=== PATIENT | female | born 1935 | race Two or more races ===

== ENCOUNTER 2023-06-09 18:08 | Inpatient (IN) | payer OTHER ==
[~2023-06-09] VITALS: Ht 162.6 cm; Wt 79.4 kg
[2023-06-09 18:08] VITALS: BP 147/67; PULSE 91; RESP 20; TEMP 100.3; O2SAT 95
[2023-06-09 20:14] LABS: BASOPHILS % (AUTO) 0.5 % (0.0-2.0); EOSINOPHILS # (AUTO) 0.1 K/uL (0-0.4); EOSINOPHILS % (AUTO) 0.9 % (0.0-4.0); HEMATOCRIT 38.6 % (36-48); HEMOGLOBIN 13.2 g/dL (12.0-16.0); LYMPHOCYTES % (AUTO) 14.7 % (20.5-51.1); MEAN CORPUSCULAR HEMOGLOBIN 30 pg (27-31); MEAN CORPUSCULAR HGB CONC 34 g/dL (33-37); MEAN CORPUSCULAR VOLUME 88.6 fL (80-94); MONOCYTES # (AUTO) 0.5 K/uL (0.8-1.0); NEUTROPHILS % (AUTO) 75.9 % (42.2-75.2); PLATELET COUNT (AUTO) 174 K/uL (140-450); RED BLOOD CELL COUNT(AUTO) 4.36 MIL/uL (4.20-5.40); RED CELL DISTRIBUTION WIDTH 13.5 % (11.6-13.7); WHITE BLOOD COUNT (AUTO) 6.5 K/uL (4.8-10.8)
[2023-06-09 20:32] LABS: ALANINE AMINOTRANSFERASE 20 U/L (12-78); ALBUMIN 2.8 g/dL (3.4-5.0); ALKALINE PHOSPHATASE 96 U/L (50-136); ANION GAP 12.6 (8-16); ASPARTATE AMINOTRANSFERASE 21 U/L (15-37); CALCIUM 8.4 mg/dL (8.5-10.1); CARBON DIOXIDE 28.1 mmol/L (21-32); CHLORIDE 101 mmol/L (98-107); CREATININE 1.1 mg/dL (0.6-1.3); GLUCOSE 131 mg/dL (74-106); POTASSIUM 3.7 mmol/L (3.5-5.1); SODIUM SERUM 138 mmol/L (136-145); TOTAL BILIRUBIN 0.2 mg/dL (0.0-1.0); TOTAL PROTEIN, SERUM 7.3 g/dL (6.4-8.2); UREA NITROGEN, BLOOD 20 mg/dL (7-18)
[2023-06-09 22:54] LABS: FLU A ANTIGEN negative (NEGATIVE); FLU B ANTIGEN negative (NEGATIVE)
[2023-06-10 01:12] LABS: APPEARANCE,URINE CLEAR (CLEAR); BILIRUBIN,URINE NEGATIVE (NEGATIVE); BLOOD, URINE NEGATIVE (NEGATIVE); COLOR,URINE YELLOW (YELLOW); LEUKOCYTE ESTERASE ,URINE NEGATIVE (NEGATIVE); NITRITE, URINE NEGATIVE (NEGATIVE); PROTEIN,URINE TRACE (NEGATIVE); UGLUCOSE NEGATIVE (NEGATIVE); UROBILINOGEN,URINE 0.2 EU/dL (0.2 - 1)
[2023-06-10 01:21] LABS: RBC,URINE NONE SEEN /HPF (0-5); WBC,URINE NONE SEEN /HPF (0-5)
[2023-06-10 01:22] LABS: BACTERIA,URINE FEW /HPF (None Seen); SQUAMOUS EPITHELIAL CELL,UR 0-3 (FEW) /LPF (0-3 (FEW))
[2023-06-10] MEDS: ACETAMINOPHEN EXTRA STRENGTH 500 MG TAB PO ONE (02:26)
[2023-06-10] MEDS: KETOROLAC 30 MG/ML VIAL IVP ONE (02:28)
[2023-06-10] MEDS: MECLIZINE 25 MG TAB PO ONE (05:12)
[2023-06-10] MEDS: NACL 0.9% 1,000 ML IV ONE (07:05)
[2023-06-10] MEDS ORDERED: PANT40EC PO (08:53)
[2023-06-10] MEDS ORDERED: DICL100G32 TP (08:53)
[2023-06-10] MEDS ORDERED: CHOL100013 PO (08:53)
[2023-06-10] MEDS ORDERED: METO25TA PO (08:53)
[2023-06-10] MEDS ORDERED: EXE9.5T TP (08:53)
[2023-06-10] MEDS ORDERED: [UNRECOGNIZED DRUG - CODE] PO (08:53)
[2023-06-10] MEDS ORDERED: VITB12 PO (08:53)
[2023-06-10] MEDS ORDERED: OLAN5TAB65 PO (08:53)
[2023-06-10] MEDS ORDERED: PIMA34CA PO (08:53)
[2023-06-10] MEDS ORDERED: FLUO40CA PO (08:53)
[2023-06-10] MEDS ORDERED: OLAN2.5T1 PO (08:53)
[2023-06-10] MEDS ORDERED: SITA25TA3 PO (08:53)
[2023-06-10] MEDS ORDERED: LEVO0.173 PO (08:53)
[2023-06-10] MEDS: NACL 0.9% 1,000 ML IV SCH (14:21)
[2023-06-10 19:30] VITALS: BP 162/66; PULSE 75; RESP 18; TEMP 97.7; O2SAT 97
[2023-06-10] MEDS: hydrALAZINE 25 MG TAB PO PRN (20:29)
[2023-06-10] MEDS ORDERED: ZOLPIDEM 5 MG TAB PO PRN (22:25)
[2023-06-10] MEDS ORDERED: ONDANSETRON 4 MG/2 ML VIAL IVP PRN (22:25)
[2023-06-10] MEDS ORDERED: LORazepam 1 MG TAB PO PRN (22:25)
[2023-06-11 06:24] LABS: BASOPHILS # (AUTO) 0.1 K/uL (0.00-0.22); BASOPHILS % (AUTO) 0.8 % (0.0-2.0); EOSINOPHILS # (AUTO) 0.1 K/uL (0-0.4); EOSINOPHILS % (AUTO) 1.8 % (0.0-4.0); HEMATOCRIT 38.1 % (36-48); HEMOGLOBIN 13.1 g/dL (12.0-16.0); LYMPHOCYTES % (AUTO) 30.2 % (20.5-51.1); MEAN CORPUSCULAR HEMOGLOBIN 31 pg (27-31); MEAN CORPUSCULAR HGB CONC 35 g/dL (33-37); MEAN CORPUSCULAR VOLUME 88.9 fL (80-94); MONOCYTES # (AUTO) 0.5 K/uL (0.8-1.0); MONOCYTES % (AUTO) 7.8 % (1.7-9.3); NEUTROPHILS # (AUTO) 3.9 K/uL (1.8-7.7); NEUTROPHILS % (AUTO) 59.4 % (42.2-75.2); PLATELET COUNT (AUTO) 146 K/uL (140-450); RED BLOOD CELL COUNT(AUTO) 4.29 MIL/uL (4.20-5.40); RED CELL DISTRIBUTION WIDTH 13.2 % (11.6-13.7); WHITE BLOOD COUNT (AUTO) 6.5 K/uL (4.8-10.8)
[2023-06-11 06:42] LABS: ALANINE AMINOTRANSFERASE 22 U/L (12-78); ALBUMIN 2.4 g/dL (3.4-5.0); ALKALINE PHOSPHATASE 87 U/L (50-136); ANION GAP 12.7 (8-16); ASPARTATE AMINOTRANSFERASE 23 U/L (15-37); CALCIUM 7.9 mg/dL (8.5-10.1); CARBON DIOXIDE 24.2 mmol/L (21-32); CHLORIDE 107 mmol/L (98-107); CREATININE 0.9 mg/dL (0.6-1.3); GLUCOSE 145 mg/dL (74-106); POTASSIUM 3.9 mmol/L (3.5-5.1); SODIUM SERUM 140 mmol/L (136-145); TOTAL BILIRUBIN 0.1 mg/dL (0.0-1.0); TOTAL PROTEIN, SERUM 6.6 g/dL (6.4-8.2); UREA NITROGEN, BLOOD 19 mg/dL (7-18)
[2023-06-11 08:00] VITALS: BP 138/69; PULSE 90; RESP 18; TEMP 98.1; O2SAT 95
[2023-06-11] MEDS: DOCUSATE SODIUM 100 MG GELCAP PO SCH (10:15)
[2023-06-11] MEDS: METOPROLOL 25 MG TAB PO SCH (10:15)
[2023-06-11] MEDS ORDERED: RIVASTIGMINE 9.5 MG/24 HR PATCH TD SCH (10:46)
[2023-06-11 16:00] VITALS: BP 162/56; PULSE 81; RESP 18; TEMP 98.2; O2SAT 95
[2023-06-11 20:00] VITALS: BP 137/59; PULSE 84; RESP 18; TEMP 97.7; O2SAT 95
[2023-06-12 05:41] LABS: BASOPHILS % (AUTO) 0.5 % (0.0-2.0); EOSINOPHILS # (AUTO) 0.1 K/uL (0-0.4); EOSINOPHILS % (AUTO) 2.1 % (0.0-4.0); HEMATOCRIT 40.9 % (36-48); HEMOGLOBIN 14.2 g/dL (12.0-16.0); LYMPHOCYTES % (AUTO) 36.6 % (20.5-51.1); MEAN CORPUSCULAR HEMOGLOBIN 31 pg (27-31); MEAN CORPUSCULAR HGB CONC 35 g/dL (33-37); MEAN CORPUSCULAR VOLUME 88.8 fL (80-94); MONOCYTES # (AUTO) 0.4 K/uL (0.8-1.0); MONOCYTES % (AUTO) 8.1 % (1.7-9.3); NEUTROPHILS # (AUTO) 2.9 K/uL (1.8-7.7); NEUTROPHILS % (AUTO) 52.7 % (42.2-75.2); PLATELET COUNT (AUTO) 138 K/uL (140-450); RED BLOOD CELL COUNT(AUTO) 4.61 MIL/uL (4.20-5.40); RED CELL DISTRIBUTION WIDTH 13.5 % (11.6-13.7); WHITE BLOOD COUNT (AUTO) 5.5 K/uL (4.8-10.8)
[2023-06-12 06:08] LABS: ALANINE AMINOTRANSFERASE 22 U/L (12-78); ALBUMIN 2.6 g/dL (3.4-5.0); ALKALINE PHOSPHATASE 90 U/L (50-136); ANION GAP 12.2 (8-16); ASPARTATE AMINOTRANSFERASE 23 U/L (15-37); CALCIUM 8.3 mg/dL (8.5-10.1); CARBON DIOXIDE 25.7 mmol/L (21-32); CHLORIDE 107 mmol/L (98-107); GLUCOSE 119 mg/dL (74-106); POTASSIUM 3.9 mmol/L (3.5-5.1); SODIUM SERUM 141 mmol/L (136-145); TOTAL BILIRUBIN 0.2 mg/dL (0.0-1.0); TOTAL PROTEIN, SERUM 7.3 g/dL (6.4-8.2); UREA NITROGEN, BLOOD 16 mg/dL (7-18)
[2023-06-12 08:00] VITALS: BP 151/63; PULSE 82; RESP 14; TEMP 98; O2SAT 98
[2023-06-12] MEDS ORDERED: RIVASTIGMINE 9.5 MG/24 HR PATCH TD SCH (09:00)
[2023-06-12] MEDS ORDERED: LEVO0.173 PO (11:41)
[2023-06-12] MEDS ORDERED: HYDR12.51 PO (11:41)
[2023-06-12 16:00] VITALS: BP 132/74; PULSE 73; RESP 18; TEMP 98.1; O2SAT 99
[2023-06-12 18:37] VITALS: RESP 18
== END 2023-06-12 19:25 | disposition home or self-care (01) | DRG 69 ==
LOC: MED 18:08 → MMU 06-10 13:34 → MTU 06-10 17:29
PROVIDERS: ADMIT Student in an Organized Health Care Education/Training Program; ATTEND Student in an Organized Health Care Education/Training Program
DX: G45.9 Transient cerebral ischemic attack, unspecified (principal); E44.1 Mild protein-calorie malnutrition; R53.1 Weakness; I10 Essential (primary) hypertension; E11.9 Type 2 diabetes mellitus without complications; Z20.822 Contact with and (suspected) exposure to COVID-19; F03.90 Unspecified dementia, unspecified severity, without behavioral disturbance, psychotic disturbance, mood disturbance, and anxiety; E03.9 Hypothyroidism, unspecified; K21.9 Gastro-esophageal reflux disease without esophagitis; Z88.5 Allergy status to narcotic agent; Z68.31 Body mass index [BMI] 31.0-31.9, adult
CPT/HCPCS: 36415; 70450; 71045; 80053; 81001; 83036; 83605; 83880; 84439; 84443; 84484; 85025; 87040; 87081; 93005; 96374; 97116; 97163-GP; 99291; J1885; J8597; Q0092; Q9967